=== PATIENT | female | born 1940 | race Caucasian/White ===

== ENCOUNTER 2022-10-31 10:43 | Emergency (ER) | payer MEDICARE, OTHER ==
[~2022-10-31] VITALS: Ht 152.4 cm; Wt 53.1 kg
[~2022-10-31 10:43] MED LIST: BENA5TAB15 PO
--- NOTE | 2022-10-31 11:00 | NUR ---
bibdaughter, sent by PMD, had chest pain saturday took 3 tabs nitro relieved denies chest pain at this time. AMBULATORY, PLACED IN BED, AAOX4, BREATHING EVEN AND UNLABORED SATURATING AT 97%RA, PAIN FREE AT MOMMENT.
--- NOTE | 2022-10-31 11:15 | NUR ---
blood drawn and swab for covid19 sent to lab
--- NOTE | 2022-10-31 11:16 | NUR ---
AT BEDSIDE FOR EVAL.
[2022-10-31 11:47] LABS: BASOPHILS % (AUTO) 0.4 % (0.0-2.0); EOSINOPHILS % (AUTO) 0.5 % (0.0-6.0); HEMATOCRIT 38 % (33-45); HEMOGLOBIN 12.6 g/dL (11.5-14.8); LYMPHOCYTES # (AUTO) 1.6 K/uL (0.8-4.8); LYMPHOCYTES % (AUTO) 23.6 % (20.0-44.0); MEAN CORPUSCULAR HGB CONC 33 g/dl (31.0-36.0); MEAN CORPUSCULAR VOLUME 93 fL (82-100); MONOCYTES # (AUTO) 0.5 K/uL (0.1-1.30); MONOCYTES % (AUTO) 7.2 % (2.0-12.0); NEUTROPHILS # (AUTO) 4.5 K/uL (1.8-8.9); NEUTROPHILS % (AUTO) 68.3 % (43.0-81.0); PLATELET COUNT (AUTO) 243 K/uL (150-450); RED BLOOD CELL COUNT(AUTO) 4.09 MIL/uL (4.0-5.2); WHITE BLOOD COUNT (AUTO) 6.6 K/uL (4.3-11.0)
[2022-10-31 11:52] LABS: CALCIUM, SERUM 8.6 mg/dL (8.5-10.1); CARBON DIOXIDE 30 mmol/L (21-32); CHLORIDE 106 mmol/L (98-107); CREATININE 0.6 mg/dL (0.6-1.3); GLUCOSE 100 mg/dL (74-106); POTASSIUM 3.9 mmol/L (3.5-5.1); SODIUM SERUM 141 mmol/L (136-145); UREA NITROGEN, BLOOD 20 mg/dL (7-18)
[2022-10-31 12:05] LABS: ALANINE AMINOTRANSFERASE 18 U/L (12-78); ALBUMIN 3.6 g/dL (3.4-5.0); ALKALINE PHOSPHATASE 69 U/L (46-116); ASPARTATE AMINOTRANSFERASE 20 U/L (15-37); BILIRUBIN,DIRECT 0.2 mg/dL (0.0-0.2); BILIRUBIN,TOTAL 0.5 mg/dL (0.2-1.0); TOTAL PROTEIN, SERUM 7.1 g/dL (6.4-8.2)
--- NOTE | 2022-10-31 12:50 | NUR ---
PATIENT TAKEN TO CT VIA KEVIN
[2022-10-31] MEDS ORDERED: METOPROLOL TARTRATE INJ 5 MG/5 ML AMPUL ONE (12:52)
[2022-10-31] MEDS ORDERED: IOHEXOL-350 100 ML VIAL IV ONE (12:52)
[2022-10-31] MEDS ORDERED: NITROGLYCERIN 0.4 MG/TAB BOTTLE ONE (12:52)
[2022-10-31] MEDS ORDERED: CT SWABBABLE VALVE TRANS SET 1 EA INFUS.SET MC ONE (12:52)
[2022-10-31] MEDS ORDERED: IV NS 0.9% 250 ML IV ONE (12:53)
[2022-10-31] MEDS ORDERED: ASPIRIN 325 MG TABLET PO ONE (13:00)
--- NOTE | 2022-10-31 13:26 | NUR ---
[facility] PROCEDURE WELL TOLERATED BY THE PT. PT IS AAOX4, NOT IN RESPIRATORY DISTRESS, V/S STABLE. KEPT RESTED AND COMFORTABLE. REPORT GIVEN TO BEDSIDE SADE ARORA FOR JOSE.
[2022-10-31] MEDS ORDERED: NITROGLYCERIN 0.4 MG/TAB BOTTLE SL ONE (13:30)
[2022-10-31] MEDS ORDERED: METOPROLOL TARTRATE INJ 5 MG/5 ML AMPUL IVP PRN (13:30)
[2022-10-31] MEDS ORDERED: ASPIRIN 325 MG TABLET ONE (13:34)
--- NOTE | 2022-10-31 13:35 | NUR ---
RECEIVE PATIENT FROM CT ANGIO AAOX4, BREATHING EVEN AND UNLABORED SATURATING AT 96%RA
[2022-10-31] MEDS ORDERED: AMLO-213 PO (14:18)
[2022-10-31] MEDS ORDERED: ASPI-1420 PO (14:18)
[2022-10-31] MEDS ORDERED: GABA-532 PO (14:18)
[2022-10-31] MEDS ORDERED: ESCI10TA PO (14:18)
[2022-10-31] MEDS ORDERED: LORA-258 PO (14:18)
[2022-10-31] MEDS ORDERED: MECL-159 PO (14:18)
[2022-10-31] MEDS ORDERED: OMEP40CA21 PO (14:18)
[2022-10-31] MEDS ORDERED: LOSA25TA27 PO (14:18)
[2022-10-31] MEDS ORDERED: ROSU10TA29 PO (14:18)
--- NOTE | 2022-10-31 14:43 | NUR ---
GOT BED 306-2 SADE LEMA. ADMITTING NOTIFIED.
--- NOTE | 2022-10-31 14:50 | NUR ---
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
--- NOTE | 2022-10-31 15:06 | NUR ---
IV removed. Catheter intact and site benign. Pressure and 4x4 applied to site. No bleeding noted.Patient discharged to home in stable condition. Written and verbal after care instructions given. Patient AND DAUGHTER verbalizes understanding of instruction.
[2022-10-31 15:19] VITALS: BP 130/70
== END 2022-10-31 15:06 | disposition home or self-care (01) ==
LOC: ER 10:55 → TELE 14:49 → UNDOADMIN 14:49
DX: R07.89 Other chest pain (principal); I10 Essential (primary) hypertension; Z79.899 Other long term (current) drug therapy; Z20.822 Contact with and (suspected) exposure to COVID-19
CPT/HCPCS: 99291; 96374; 75574; 71045; 87426; 93005 ×2; 85025; 80048; 80076; 36415; 84484; 83880; J3490; J7050; Q9967; C9803